=== PATIENT | female | born 1970 | race Caucasian/White ===

== ENCOUNTER 2025-01-31 09:33 | Emergency (ER) | payer MEDICARE, OTHER ==
[~2025-01-31] VITALS: Ht 153 cm; Wt 70.0 kg
[~2025-01-31 09:33] MED LIST: ASPI-1444 PO; CARV6.2534 PO; DOCU100C33 PO; FERRHI IVP; GABA-1216 PO; GLIP-300 PO; LACT10SO9 PO; NIFE90TA91 PO; NITR0.4T52 SL; PATI1POW PO; PHOSLOC PO; PRED5DRO17 OD; ROPI0.2535 PO; ROSU10TA98 PO
[2025-01-31 09:45] VITALS: TEMP 98
[2025-01-31 10:02] LABS: CALCIUM, TOTAL 8.7 mg/dL (8.8-10.5); CREATININE 7.82 mg/dL (0.60-1.30); GLOMERULAR FILTR. RATE CALC 5 mL/min (>60); GLUCOSE,RANDOM 98 mg/dL (70-110); SODIUM SERUM 138 mmol/L (136-145); UREA NITROGEN, BLOOD 37 mg/dL (7-18)
[2025-01-31 10:12] LABS: TROPONIN I-HIGH SENSITIVITY 10 ng/L (<51)
[2025-01-31 10:20] LABS: PLATELET COUNT (AUTO) 179 K/uL (150-450); RED BLOOD CELL COUNT(AUTO) 2.59 MIL/uL (4.00-5.20); RED CELL DISTRIBUTION WIDTH 13.9 % (11.5-14.5); WHITE BLOOD COUNT (AUTO) 5.9 K/uL (4.5-11.0)
[2025-01-31] MEDS ORDERED: NIFE-141 PO (10:58)
[2025-01-31] MEDS ORDERED: DOCU-412 PO (10:58)
[2025-01-31 11:50] LABS: APPEARANCE,URINE CLEAR (CLEAR); GLUCOSE, URINE (UA) 70-100 mg/dL (NEGATIVE); LEUKOCYTE ESTERASE ,URINE NEGATIVE (NEGATIVE); NITRATE,URINE NEGATIVE (NEGATIVE); OCCULT BLOOD,URINE SMALL (NEGATIVE); SPECIFIC GRAVITIY, URINE 1.008 (1.003-1.030)
[2025-01-31 12:06] LABS: SULFOSALICYLIC ACID,URINE 3+ (Negative)
[2025-01-31 12:08] LABS: SQUAMOUS EPITHELIAL CELL,UR Moderate /LPF (None Seen)
[2025-01-31] MEDS ORDERED: PERCT PO (12:22)
[2025-01-31] MEDS ORDERED: CLIN300C58 PO (12:22)
[2025-01-31 12:41] VITALS: BP 212/84; PULSE 74; RESP 16; O2SAT 100
== END 2025-01-31 12:53 | disposition home or self-care (01) ==
LOC: EMS 09:34
DX: R51.9 Headache, unspecified (principal); K08.89 Other specified disorders of teeth and supporting structures; E11.22 Type 2 diabetes mellitus with diabetic chronic kidney disease; I12.0 Hypertensive chronic kidney disease with stage 5 chronic kidney disease or end stage renal disease; N18.6 End stage renal disease; Z98.890 Other specified postprocedural states; Z79.82 Long term (current) use of aspirin; Z88.0 Allergy status to penicillin; Z88.5 Allergy status to narcotic agent; Z99.2 Dependence on renal dialysis; Z79.899 Other long term (current) drug therapy
CPT/HCPCS: 71045; 80048; 81001; 81002; 82550; 83880; 84484; 85025; 85610; 85730; 93005; 99285; 36415-L1; 36415-TC

== ENCOUNTER 2025-02-09 17:49 | Inpatient (IN) | payer MEDICARE, OTHER ==
[~2025-02-09] VITALS: Ht 165.1 cm; Wt 68.4 kg
[~2025-02-09 17:49] MED LIST changes: +CLIN300C58 PO; +DOCU-412 PO; -DOCU100C33 PO; +NIFE-141 PO; -NIFE90TA91 PO
[2025-02-09 18:53] LABS: PLATELET COUNT (AUTO) 213 K/uL (150-450); RED BLOOD CELL COUNT(AUTO) 2.45 MIL/uL (4.00-5.20); RED CELL DISTRIBUTION WIDTH 14.6 % (11.5-14.5); WHITE BLOOD COUNT (AUTO) 6.9 K/uL (4.5-11.0)
[2025-02-09 19:02] LABS: CALCIUM, TOTAL 8.3 mg/dL (8.8-10.5); CREATININE 2.72 mg/dL (0.60-1.30); GLOMERULAR FILTR. RATE CALC 18 mL/min (>60); GLUCOSE,RANDOM 140 mg/dL (70-110); SODIUM SERUM 135 mmol/L (136-145); UREA NITROGEN, BLOOD 10 mg/dL (7-18)
[2025-02-09 19:06] LABS: ASPARTATE AMINOTRANSFERASE 14.0 U/L (15-37); TOTAL PROTEIN, SERUM 7.7 g/dL (6.4-8.2)
[2025-02-09 19:08] LABS: TROPONIN I-HIGH SENSITIVITY 12 ng/L (<51)
[2025-02-09] MEDS: POTASSIUM CHLORIDE 20 MEQ ER TABLET PO ONE (19:21)
[2025-02-09] MEDS ORDERED: DEXTROSE 50%-WATER 25 GM/50 ML SYRINGE IVP PRN (20:30)
[2025-02-09] MEDS ORDERED: BISACODYL 10 MG RECTAL RECTAL SUPPOSITORY PR PRN (20:30)
[2025-02-09] MEDS: ROSUVASTATIN CALCIUM 10 MG TABLET PO SCH (20:48)
[2025-02-09] MEDS: DOCUSATE SODIUM 100 MG CAPSULE PO SCH (20:48)
[2025-02-09 22:00] VITALS: BP 168/64; PULSE 62; RESP 17; TEMP 97.8; O2SAT 97
[2025-02-10] MEDS: HEPARIN SODIUM,PORCINE 5,000 UNITS/ML VIAL SQ SCH (00:09)
[2025-02-10 00:29] VITALS: BP 120/63; PULSE 61; RESP 18; TEMP 97.6; O2SAT 98
[2025-02-10 04:25] VITALS: BP 125/64; PULSE 60; RESP 16; TEMP 97; O2SAT 97
[2025-02-10 06:27] LABS: PLATELET COUNT (AUTO) 190 K/uL (150-450); RED BLOOD CELL COUNT(AUTO) 2.35 MIL/uL (4.00-5.20); RED CELL DISTRIBUTION WIDTH 14.5 % (11.5-14.5); WHITE BLOOD COUNT (AUTO) 6.2 K/uL (4.5-11.0)
[2025-02-10 06:34] LABS: CALCIUM, TOTAL 8.4 mg/dL (8.8-10.5); CREATININE 4.1 mg/dL (0.60-1.30); GLOMERULAR FILTR. RATE CALC 11.0 mL/min (>60); GLUCOSE,RANDOM 117.0 mg/dL (70-110); SODIUM SERUM 137.0 mmol/L (136-145); UREA NITROGEN, BLOOD 17.0 mg/dL (7-18)
[2025-02-10 07:14] VITALS: BP 133/58; PULSE 64; RESP 18; TEMP 98.4; O2SAT 98
[2025-02-10] MEDS: ACETAMINOPHEN 325 MG TABLET PO PRN (08:46)
[2025-02-10] MEDS: FAMOTIDINE 20 MG TABLET PO SCH (08:47)
[2025-02-10] MEDS: ASPIRIN 81 MG CHEWABLE TABLET PO SCH (08:48)
[2025-02-10 09:01] LABS: GLUCOMETER DEV NAME(LOC) 5N.1D; GLUCOSE,POINT OF CARE 129 MG/DL (70-110)
[2025-02-10] MEDS: PANTOPRAZOLE SODIUM 40 MG DR TABLET PO SCH (09:05)
[2025-02-10 11:27] VITALS: BP 153/58; PULSE 62; RESP 18; TEMP 98.2; O2SAT 98
[2025-02-10] MEDS: INSULIN LISPRO 100 UNITS/ML SQ PRN (11:52)
[2025-02-10 12:00] LABS: GLUCOMETER DEV NAME(LOC) 5N.2C; GLUCOSE,POINT OF CARE 174 MG/DL (70-110)
[2025-02-10 15:38] VITALS: BP 170/68; PULSE 65; RESP 16; TEMP 98.4; O2SAT 97
[2025-02-10 17:34] LABS: PLATELET COUNT (AUTO) 202 K/uL (150-450); RED BLOOD CELL COUNT(AUTO) 2.48 MIL/uL (4.00-5.20); RED CELL DISTRIBUTION WIDTH 14.2 % (11.5-14.5); WHITE BLOOD COUNT (AUTO) 6.4 K/uL (4.5-11.0)
[2025-02-10 19:44] VITALS: BP 148/51; PULSE 73; RESP 17; TEMP 98.2; O2SAT 96
[2025-02-10] MEDS: ZOLPIDEM TARTRATE 5 MG TABLET PO PRN (20:35)
[2025-02-10 21:25] LABS: GLUCOMETER DEV NAME(LOC) 5N.2C; GLUCOSE,POINT OF CARE 121 MG/DL (70-110)
[2025-02-10 21:25] LABS: GLUCOMETER DEV NAME(LOC) 5N.2C; GLUCOSE,POINT OF CARE 158 MG/DL (70-110)
[2025-02-11 00:30] VITALS: BP 167/65; PULSE 67; RESP 17; TEMP 98.4; O2SAT 98
[2025-02-11] MEDS: ONDANSETRON HCL 4 MG/2 ML VIAL IVP PRN (01:35)
[2025-02-11 04:31] VITALS: BP 156/58; PULSE 76; RESP 19; TEMP 98.4; O2SAT 97
[2025-02-11 07:30] LABS: PLATELET COUNT (AUTO) 213 K/uL (150-450); RED BLOOD CELL COUNT(AUTO) 2.64 MIL/uL (4.00-5.20); RED CELL DISTRIBUTION WIDTH 14.5 % (11.5-14.5); WHITE BLOOD COUNT (AUTO) 7.2 K/uL (4.5-11.0)
[2025-02-11 07:36] VITALS: BP 158/58; PULSE 77; RESP 18; TEMP 98.6; O2SAT 98
[2025-02-11 07:51] LABS: CALCIUM, TOTAL 8.9 mg/dL (8.8-10.5); CREATININE 6.32 mg/dL (0.60-1.30); GLOMERULAR FILTR. RATE CALC 7.0 mL/min (>60); GLUCOSE,RANDOM 147.0 mg/dL (70-110); SODIUM SERUM 136.0 mmol/L (136-145); UREA NITROGEN, BLOOD 31.0 mg/dL (7-18)
[2025-02-11 08:51] LABS: GLUCOMETER DEV NAME(LOC) 5N.2C; GLUCOSE,POINT OF CARE 145 MG/DL (70-110)
[2025-02-11] MEDS: PANTOPRAZOLE SODIUM 40 MG DR TABLET PO SCH (09:00)
[2025-02-11 11:24] VITALS: BP 152/57; PULSE 77; RESP 18; TEMP 99.1; O2SAT 98
[2025-02-11 15:19] VITALS: BP 152/62; PULSE 69; RESP 18; TEMP 98.2; O2SAT 98
[2025-02-11 16:26] LABS: GLUCOMETER DEV NAME(LOC) 5N.2C; GLUCOSE,POINT OF CARE 258 MG/DL (70-110)
== END 2025-02-11 15:30 | disposition home or self-care (01) | DRG 304 ==
LOC: EMS 17:49 → EDH 20:23 → 5S 22:01
PROVIDERS: ADMIT Internal Medicine; ATTEND Internal Medicine
DX: I16.0 Hypertensive urgency (principal); N18.6 End stage renal disease; D63.1 Anemia in chronic kidney disease; I13.11 Hypertensive heart and chronic kidney disease without heart failure, with stage 5 chronic kidney disease, or end stage renal disease; Z99.2 Dependence on renal dialysis; E11.319 Type 2 diabetes mellitus with unspecified diabetic retinopathy without macular edema; Z59.00 Homelessness unspecified; I25.10 Atherosclerotic heart disease of native coronary artery without angina pectoris; E11.40 Type 2 diabetes mellitus with diabetic neuropathy, unspecified; E11.22 Type 2 diabetes mellitus with diabetic chronic kidney disease; E87.6 Hypokalemia; K59.00 Constipation, unspecified; Z88.0 Allergy status to penicillin; Z88.5 Allergy status to narcotic agent; Z79.899 Other long term (current) drug therapy
CPT/HCPCS: 71045; 80048; 80076; 82271; 82962; 84132; 84484; 85025; 87081; 93005; 99285; J0360; J1644; J2405; 36415-L1; 36415-TC

== ENCOUNTER 2025-02-12 19:21 | Emergency (ER) | payer MEDICARE, OTHER ==
[~2025-02-12] VITALS: Ht 165.1 cm; Wt 67.0 kg
[2025-02-12 20:05] LABS: PLATELET COUNT (AUTO) 206 K/uL (150-450); RED BLOOD CELL COUNT(AUTO) 2.52 MIL/uL (4.00-5.20); RED CELL DISTRIBUTION WIDTH 14.5 % (11.5-14.5); WHITE BLOOD COUNT (AUTO) 7.5 K/uL (4.5-11.0)
[2025-02-12 20:12] LABS: CALCIUM, TOTAL 8.6 mg/dL (8.8-10.5); CREATININE 3.44 mg/dL (0.60-1.30); GLOMERULAR FILTR. RATE CALC 14 mL/min (>60); GLUCOSE,RANDOM 195 mg/dL (70-110); SODIUM SERUM 133 mmol/L (136-145); UREA NITROGEN, BLOOD 13 mg/dL (7-18)
[2025-02-12 20:19] LABS: ASPARTATE AMINOTRANSFERASE 19.0 U/L (15-37); TOTAL PROTEIN, SERUM 8.0 g/dL (6.4-8.2)
[2025-02-12 20:21] LABS: TROPONIN I-HIGH SENSITIVITY 13 ng/L (<51)
[2025-02-12 22:55] VITALS: BP 139/65; PULSE 70; RESP 18; TEMP 97.905272; O2SAT 100
[2025-02-12] MEDS: POTASSIUM CHLORIDE 20 MEQ ER TABLET PO ONE (23:07)
== END 2025-02-13 00:57 | disposition home or self-care (01) ==
LOC: EMS 19:21
DX: I12.0 Hypertensive chronic kidney disease with stage 5 chronic kidney disease or end stage renal disease (principal); N18.6 End stage renal disease; E11.22 Type 2 diabetes mellitus with diabetic chronic kidney disease; E87.6 Hypokalemia; Z79.82 Long term (current) use of aspirin; Z88.0 Allergy status to penicillin; Z88.5 Allergy status to narcotic agent; Z99.2 Dependence on renal dialysis; Z79.899 Other long term (current) drug therapy; Z98.890 Other specified postprocedural states; Z91.018 Allergy to other foods
CPT/HCPCS: 71045; 80048; 80076; 82962; 83880; 84484; 85025; 93005; 99285; 36415-L1; 36415-TC